=== PATIENT | male | born 1935 | race Caucasian/White ===

== ENCOUNTER 2020-12-11 18:00 | Inpatient (IN) | payer OTHER, MEDICARE ==
[~2020-12-11] VITALS: Ht 177.8 cm; Wt 82.3 kg
[2020-12-11 23:24] VITALS: BP 135/68
[2020-12-12] MEDS ORDERED: magnesium hydroxide 30ml (MOM) UD suspension PO PRN (00:10)
[2020-12-12] MEDS ORDERED: traZODone 50mg tablet PO PRN (00:10)
[2020-12-12] MEDS ORDERED: loperamide 2mg capsule PO PRN (00:10)
[2020-12-12] MEDS ORDERED: LORazepam 1 MG tablet PO PRN ×2 (00:10→13:00)
[2020-12-12] MEDS ORDERED: acetaminophen 325mg tablet PO PRN ×2 (00:10)
[2020-12-12] MEDS ORDERED: NAPR-996 PO (00:10)
--- NOTE | 2020-12-12 00:11 | NUR ---
SOFTWARE PROGRAM MANAGER NOTE: LEGAL HOLD: 5150 for DTS PSYCH HX: Depression. Recent SA via overdose. 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 Client told his daughter about this attempt and was taken to [facility]. Client states, "I'm old and I'm tired. I don't want to live to be 89. Three years ago I had a falling out with my son. I gave my daughter my house and my son is mad." "I'm lonely." Clients mood and affect are depressed. THIS SHIFT: Client arrived on unit at 22:30 in a wheelchair on 2 L of O2. Client was transferred from [facility]. Client was escorted by Benita. Client is a pleasant and cooperative. Personal belongings were inventoried. Unsteady gait. Client is a two person assist.
--- NOTE | 2020-12-12 03:20 | NUR ---
HIGH FALL RISK
[2020-12-12] MEDS ORDERED: ASPI-10 PO (03:32)
[2020-12-12] MEDS ORDERED: FLO0.4C PO (03:32)
[2020-12-12] MEDS ORDERED: LISI1TAB51 PO (03:32)
[2020-12-12] MEDS ORDERED: FAMO40TA59 PO (03:32)
[2020-12-12] MEDS ORDERED: SIMV80TA2 PO (03:32)
[2020-12-12] MEDS ORDERED: IBUP-1984 PO (03:32)
[2020-12-12] MEDS ORDERED: BISO5TAB PO (03:32)
[2020-12-12] MEDS ORDERED: naproxen 500mg tablet PO PRN (05:15)
[2020-12-12] MEDS: lisinopril 20mg tablet PO SCH (07:39)
[2020-12-12] MEDS: HYDROchlorothiazide 12.5mg capsule PO SCH (07:39)
[2020-12-12] MEDS: famotidine 20mg tablet PO SCH (07:39)
[2020-12-12] MEDS: tamsulosin 0.4mg capsule PO SCH (07:39)
[2020-12-12] MEDS: aspirin 325mg tablet PO SCH (07:40)
[2020-12-12] MEDS: atorvastatin 20mg tablet PO SCH (07:40)
[2020-12-12] MEDS ORDERED: atenolol 25mg tablet PO SCH (08:00)
[2020-12-12 08:09] VITALS: BP 109/58
[2020-12-12] MEDS: docusate sod 100mg capsule PO SCH ×2 (09:05→19:03)
[2020-12-12] MEDS ORDERED: FLU VACC QS2021-22(6MOS UP)/PF 60 MCG/0.5 ML SYRINGE IM ONE (10:00)
[2020-12-12] MEDS ORDERED: ESCITALOPRAM OXALATE 5 MG TABLET PO ONE (13:00)
--- NOTE | 2020-12-12 16:53 | NUR ---
Nursing Progress Note: Legal hold: 5150 Patient is on involuntary status for DTS. Report received from FINA Nuñez with use of SBAR. Assessment Why they are here: Client is a 85 yo man who attempted to overdose on his medications. Client told his daughter about this attempt and was taken to [facility]. Client states, "I'm old and I'm tired. I don't want to live to be 89. Three years ago I had a falling out with my son. I gave my daughter my house and my son is mad." "I'm lonely." What has happened this shift: Patient resting quietly in bed at the start of the shift. Sits up in bed against the wall for SOB when laying down. Sats remain >90% on 2L O2 via nasal cannula. SOB with activity relieved by rest. States he tried to commit suicide due to loneliness and depression. Had a falling out with his son, and lost a close friend 3 years ago. States he was not wanting to live until 88 or 89. States, I thought about it for a quite a while. So I wrote blank checks for my kids so theyd have money, and did it. Also states, Knowing what I know now I wouldnt do it again because it made me so disabled and weak. Ambulates with FWW with stand by assistance. Does not want to wear oxygen during the day. At home he wears O2 only at night. MD aware and O2 checked frequently. Atenolol held for HR < parameters. MD notified and states he will review Cardiac medications. Patient c/o frequent constipation. New order for routine Colace BID which patient is agreeable to. Patient is pleasant and cooperative although tearful at times when talking about family dynamics and loss of loved ones. PRN Milk of magnesia given; awaiting results. S/I, H/I: Denies A/VH: Denies Sleep: 3.75 hours per NOC. ADL's: Requires assistance r/t weakness and O2 desat with activity. Group attendance: N/A Were meds taken: Yes Any med S/E: None observed or reported Mental Status Exam Appearance: Older man with white hair, facial stubble, wearing clean unit scrubs. Eye contact: Good Behavior: Pleasant, cooperative Speech: Clear, normal rate/ volume Mood: Depressed Affect: Full range, Congruent with mood Thought process: Linear Thought Content: Feeling depressed over the relocation of a good friend 3 years ago, a falling out with his son 3 years ago, decreased independence and loneliness. Cognition: A&O x4 Insight: Fair Judgment: Fair Interventions PRN's used: None Therapeutic interventions: 1:1 assessment, therapeutic communication, active listening, ensured contract for safety, medication education/administration/monitoring, provided clear and simple instructions, encouragement to attend groups, behavior monitoring and intervention as needed; distraction, positive reinforcement, and maintained Q 15 minute safety checks. Restraints/seclusion/emergency medication: N/A Justification of Continued Inpatient Treatment: Patient continues to require a safe and therapeutic environment, medication adjustment/monitoring, and crisis intervention.
[2020-12-12 20:00] VITALS: BP 93/49
--- NOTE | 2020-12-12 23:00 | NUR ---
Fall Note: At approximately 20:30 staff responds to bed alarm. Patient is in the bathroom and reports that he fell on the floor on the way to the toilet. Skin tear noted to his left lateral forearm. Patient assisted back to bed. Initially denies pain from fall but later c/o generalized soreness relieved by PRN Motrin and rest. Skin tear cleaned and covered. Addendum: 12/13/20 at 0545 by Nika Clarke RN Post fall VS; BP 90/58, HR 51, O2 96% on 2L
[2020-12-13] MEDS: ibuprofen tablet 400 MG TABLET PO PRN (00:36)
--- NOTE | 2020-12-13 05:25 | NUR ---
Nursing Progress Note: Legal hold: 5150 Patient is on involuntary status for DTS. Report received from FINA Nice with use of SBAR. Assessment Why they are here: Client is a 85 yo man who attempted to overdose on his medications. Client told his daughter about this attempt and was taken to [facility]. Client states, "I'm old and I'm tired. I don't want to live to be 89. Three years ago I had a falling out with my son. I gave my daughter my house and my son is mad." "I'm lonely." What has happened this shift: Patient eating dinner in the community room at the start of the shift interacting appropriately with staff and peers. Returns to his room where he rests awake in bed with 2L O2 via nasal cannula. Sats remain >90% with SOB noted on exertion relieved by rest. Pleasant/ cooperative with care and 1:1 assessment. Takes medication as ordered. States he had a medium sized BM with some difficulty but is feeling less constipated. At patient tries to transfer from toilet independently and has a fall causing a skin tear to his right lateral forearm. Cleansed with NS and covered with non-adherent dressing. Patient c/o generalized pain during the night relieved by PRN Motrin. Sleeping quietly in bed at this time. S/I, H/I: Denies A/VH: Denies Sleep: See sleep assessment ADL's: Requires assistance r/t weakness and O2 desat with activity. Group attendance: N/A Were meds taken: Yes Any med S/E: None observed or reported Mental Status Exam Appearance: Older man with white hair, facial stubble, wearing clean unit scrubs. Eye contact: Good Behavior: Pleasant, cooperative, calm Speech: Clear, normal rate/ volume Mood: Pretty decent. Affect: Full range, Congruent with mood Thought process: Linear Thought Content: Concerned about generalized weakness and loss of independence. Cognition: A&O x4 Insight: Fair Judgment: Fair Interventions PRN's used: None Therapeutic interventions: 1:1 assessment, therapeutic communication, active listening, ensured contract for safety, medication education/administration/monitoring, provided clear and simple instructions, encouragement to attend groups, behavior monitoring and intervention as needed; distraction, positive reinforcement, and maintained Q 15 minute safety checks. Restraints/seclusion/emergency medication: N/A Justification of Continued Inpatient Treatment: Patient continues to require a safe and therapeutic environment, medication adjustment/monitoring, and crisis intervention.
[2020-12-13] MEDS: HYDROchlorothiazide 12.5mg capsule PO SCH (07:30)
[2020-12-13] MEDS: lisinopril 20mg tablet PO SCH (07:31)
[2020-12-13 07:39] VITALS: BP 99/59
[2020-12-13] MEDS: atorvastatin 20mg tablet PO SCH (07:41)
[2020-12-13] MEDS: aspirin 325mg tablet PO SCH (07:41)
[2020-12-13] MEDS: docusate sod 100mg capsule PO SCH ×2 (07:41→19:55)
[2020-12-13] MEDS: famotidine 20mg tablet PO SCH (07:41)
[2020-12-13] MEDS: tamsulosin 0.4mg capsule PO SCH (07:41)
[2020-12-13] MEDS: ESCITALOPRAM OXALATE 5 MG TABLET PO SCH (07:41)
[2020-12-13 10:08] LABS: HEMOGLOBIN A1C 6.1 % (4.5-6.2)
[2020-12-13 10:16] LABS: CHOL/HDL RATIO 2.8 (0.00-4.99); CHOLESTEROL 108 MG/DL (0-200); HDL CHOLESTEROL 38 MG/DL (35-60); LDL CHOLESTEROL 59 MG/DL (50-100); TRIGLYCERIDES 96 MG/DL (20-135)
--- NOTE | 2020-12-13 16:19 | NUR ---
Nursing Progress Note: Legal hold: 5150 Patient is on involuntary status for DTS. Report received from FINA Vargas with use of SBAR. Assessment Why they are here: Client is a 85 yo man who attempted to overdose on his medications. Client told his daughter about this attempt and was taken to [facility]. Client states, "I'm old and I'm tired. I don't want to live to be 89. Three years ago I had a falling out with my son. I gave my daughter my house and my son is mad." "I'm lonely." What has happened this shift: Pt sleeping at change of shift. Pt is line of site sitter for fall prevention. No staff available so pt placed on bed alarm and has call light and instructed to use the call light. Pt states he will follow these instructions due to his fall last night. Pt did follow all the fall precaution instructions today and did very well. Pt ambulated with assistance and walker. PT states feeling stronger today and ambulating improved from yesterday. Pts R elbow has dressing that was bloody. Carefully changed dressing with new nonadherant gauze and tegaderm. Pt is compliant with treatment and thankful. Pt states he will need help when he goes home and instructed pt to relay this info to bilingual social worker when he see one Monday. Pt started his antidepressant Lexapro today. S/I, H/I: Denies A/VH: Denies Sleep: See sleep assessment ADL's: Requires assistance r/t weakness and O2 desat with activity. Group attendance: N/A Were meds taken: Yes Any med S/E: None observed or reported Mental Status Exam Appearance: Older man with white hair, facial stubble, wearing clean unit scrubs. Eye contact: Good Behavior: Pleasant, cooperative, calm Speech: Clear, normal rate/ volume Mood: Pretty decent. Affect: Full range, Congruent with mood Thought process: Linear Thought Content: Concerned about generalized weakness and loss of independence. Cognition: A&O x4 Insight: Fair Judgment: Fair Interventions PRN's used: None Therapeutic interventions: 1:1 assessment, therapeutic communication, active listening, ensured contract for safety, medication education/administration/monitoring, provided clear and simple instructions, encouragement to attend groups, behavior monitoring and intervention as needed; distraction, positive reinforcement, and maintained Q 15 minute safety checks. Restraints/seclusion/emergency medication: N/A Justification of Continued Inpatient Treatment: Patient continues to require a safe and therapeutic environment, medication adjustment/monitoring, and crisis intervention.
[2020-12-13 19:35] VITALS: BP 134/74
--- NOTE | 2020-12-14 02:48 | NUR ---
Nursing Progress Note: Legal hold: 5150 Patient is on involuntary status for DTS. Report received from FINA Goodrich with use of SBAR. Assessment Why they are here: Client is a 85 yo man who attempted to overdose on his medications. Client told his daughter about this attempt and was taken to [facility]. Client states, "I'm old and I'm tired. I don't want to live to be 89. Three years ago I had a falling out with my son. I gave my daughter my house and my son is mad." "I'm lonely." What has happened this shift: Pt in bed at change of shift. Pts R elbow has dressing that was bloody. Carefully changed dressing with new non adherent gauze and Tegaderm. Pt is line of site for fall prevention. No staff available so pt placed on bed alarm and has call light and instructed to use the call light. Pt was cooperative and helpful. O2 via nasal canula on and needs to be removed from room in the AM. S/I, H/I: Denies A/VH: Denies Sleep: See sleep assessment ADL's: Requires assistance r/t weakness and O2 desat with activity. Group attendance: N/A Were meds taken: Yes Any med S/E: None observed or reported Mental Status Exam Appearance: Older man with white hair, facial stubble, wearing clean unit scrubs. Eye contact: Good Behavior: Pleasant, cooperative, calm Speech: Clear, normal rate/ volume Mood: Pretty decent. Affect: Full range, Congruent with mood Thought process: Linear Thought Content: Concerned about generalized weakness and loss of independence. Cognition: A&O x4 Insight: Fair Judgment: Fair Interventions PRN's used: None Therapeutic interventions: 1:1 assessment, therapeutic communication, active listening, ensured contract for safety, medication education/administration/monitoring, provided clear and simple instructions, encouragement to attend groups, behavior monitoring and intervention as needed; distraction, positive reinforcement, and maintained Q 15 minute safety checks. Restraints/seclusion/emergency medication: N/A Justification of Continued Inpatient Treatment: Patient continues to require a safe and therapeutic environment, medication adjustment/monitoring, and crisis intervention.
[2020-12-14] MEDS: ibuprofen tablet 400 MG TABLET PO PRN ×2 (04:00→16:46)
[2020-12-14 07:36] VITALS: BP 97/69
[2020-12-14] MEDS: aspirin 325mg tablet PO SCH (08:30)
[2020-12-14 08:50] VITALS: BP 120/60
[2020-12-14] MEDS: atorvastatin 20mg tablet PO SCH (08:58)
[2020-12-14] MEDS: docusate sod 100mg capsule PO SCH ×2 (08:58→20:22)
[2020-12-14] MEDS: tamsulosin 0.4mg capsule PO SCH (08:58)
[2020-12-14] MEDS: famotidine 20mg tablet PO SCH (08:58)
[2020-12-14] MEDS: ESCITALOPRAM OXALATE 5 MG TABLET PO SCH (08:58)
[2020-12-14] MEDS: lisinopril 10 MG tablet PO SCH (08:59)
[2020-12-14] MEDS: HYDROchlorothiazide 12.5mg capsule PO SCH (08:59)
[2020-12-14 10:02] LABS: CLARITY,URINE CLEAR (Clear); COLOR,URINE YELLOW (Yellow); GLUCOSE, URINE NEGATIVE (Neg); KETONES,URINE NEGATIVE (Neg); LEUKOCYTE ESTERASE ,URINE NEGATIVE (Neg); NITRITES, URINE NEGATIVE (Neg); OCCULT BLOOD,URINE SMALL (Neg); PROTEIN,URINE NEGATIVE (Neg); UA COLLECTION TYPE CLN CATCH MIDSTREAM; UROBILINOGEN,URINE 0.2 E.U/dL (0.2-1.0)
[2020-12-14 10:18] LABS: BACTERIA,URINE NONE SEEN /HPF (Neg); MUCUS STRANDS NONE SEEN /LPF (Neg); RBC,URINE NONE SEEN /HPF (0-2); SQUAMOUS EPITHELIAL CELL,UR FEW /LPF (FEW); WBC,URINE NONE SEEN /HPF (0-4)
--- NOTE | 2020-12-14 12:51 | NUR ---
[facility] requested [facility] to [facility] at [facility] request. Attn: Charlene Fax# [phone] Phone# [phone] SHANA Velazquez
[2020-12-14 17:00] VITALS: BP 132/63
--- NOTE | 2020-12-14 17:39 | NUR ---
Nursing Progress Note: Legal hold: 5250 Client on involuntary status for DTS Report received from nurse with use of SBAR: FINA Russo Why are they here: Client is a 85 yo man who attempted to overdose on his medications. Client told his daughter about this attempt and was taken to [facility]. Client states, "I'm old and I'm tired. I don't want to live to be 89. Three years ago I had a falling out with my son. I gave my daughter my house and my son is mad." "I'm lonely." Assessment What has happened this shift: Received pt. sleeping in bed at the beginning of the shift, he awoke and was able to ambulate to the independently with use of FWW monitored by staff for safety. Pt. remains on close observation per fall precautions, and bed alarm in use. However, pt. appears to be gaining strength, and is able to use FWW to independently ambulate throughout the day. 1:1 completed at bedside, pt. presents as cooperative and pleasant. He denies any current S/I, however states tearfully, "I just wish it would have worked when I tried to do myself in." He then reports that he lives alone and is lonely. He is hoping to be placed in a facility where he can interact with others. This junior copywriter replaced dressing to pt's right elbow r/t laceration from previous fall bleeding through. This was endorsed to Dr. Qureshi who ordered a wound care consult. Also, daily Asprin 325mg held. Dr. Qureshi also ordered a urinalysis r/t chronic small amount of blood in urine, results were WNL and no culture indicated. Pt. remained in bed throughout much of the day, getting up for meals only. He had several telephone calls from friends and family and reported contentment. This junior copywriter spoke to pt's daughter with his consent. S/I, H/I: Passive S/I A/VH: Denies, does not appear internally preoccupied Sleep: Sleep hours are 5.5, and pt. naps intermittently during the day ADL's: On close observation r/t fall risk, uses FWW Group attendance: N/A Were meds taken: Yes Any med S/E None Mental Status Exam Appearance: Neat and appropriately dressed Eye contact: Good Behavior: Cooperative Speech: WNL Mood: Depressed, however pleasant Affect: Blunted Thought process: Linear Thought Content: Depressed Cognition: A&O X4 Insight: Poor Judgment: Poor Interventions PRN's used: Yg Therapeutic interventions: Introduced self and established rapport, maintained a safe and supportive environment, ensured contract for safety, provided clear and simple instructions, provided active listening and positive encouragement, maintained fall precautions and close observation. Restraints/seclusion/emergency medication: N/A Justification of Continued Inpatient Treatment: Pt. continues to require interruption of current crisis, medication adjustments, and a safe and supportive environment.
--- NOTE | 2020-12-14 17:58 | NUR ---
Right arm Laceration: At approximately 1700, pt. reported increased pain at rt. elbow laceration site from previous fall. Area appears reddened and is warm to the touch. V/S WNL. Hospitalist notified and PRN Motrin given. Per Dr. Carlson, CBC with diff, BMP, and procalcitonin labs ordered. Also, an x-ray of the area. Depending on these results, the decision to start pt. on ABTs will be made, will endorse to NOC shift. Provided eduction to pt. and he reports understanding. Dressing to area remains CDI.
[2020-12-14 18:59] LABS: BASOPHILS # (AUTO) 0.2 X10'3 (0-0.2); EOSINOPHILS % (AUTO) 0.2 % (0-6); HEMATOCRIT 47.2 % (42.0-52.0); HEMOGLOBIN 16.1 g/dl (14.0-17.9); LYMPHOCYTES # (AUTO) 1.6 X10'3 (1.1-4.8); LYMPHOCYTES % (AUTO) 10.2 % (21-51); MEAN CORPUSCULAR HEMOGLOBIN 30.8 PG (27.0-31.0); MEAN CORPUSCULAR HGB CONC 34.1 g/dL (33.0-36.5); MEAN CORPUSCULAR VOLUME 90.4 FL (78-98); MEAN PLATELET VOLUME 9.1 FL (7.4-10.4); MONOCYTES # (AUTO) 1.2 X10'3 (0-0.9); MONOCYTES % (AUTO) 8.1 % (2-12); NEUTROPHILS # (AUTO) 12.4 X10'3 (1.8-7.7); NEUTROPHILS % (AUTO) 80.5 % (42-75); PLATELET COUNT 208 X10'3 (140-440); RED BLOOD COUNT 5.22 X10'6 (4.70-6.10); WHITE BLOOD COUNT 15.4 X10'3 (4.5-11.0)
[2020-12-14 19:09] LABS: ALBUMIN 3.4 G/DL (3.4-5.0); ANION GAP 12 (8-16); BLOOD UREA NITROGEN 28 MG/DL (7-18); CALCIUM 8.8 MG/DL (8.5-10.1); CHLORIDE 104 MMOL/L (99-107); CREATININE 1.27 MG/DL (0.60-1.10); GLUCOSE 111 MG/DL (70-104); POTASSIUM 4.4 MMOL/L (3.5-5.1); SODIUM 141 MMOL/L (135-145); TOTAL CARBON DIOXIDE 25.5 MMOL/L (24-32); eGFR 54 ML/MIN
[2020-12-14 20:17] VITALS: BP 96/54
[2020-12-15] MEDS: ibuprofen tablet 400 MG TABLET PO PRN (00:09)
--- NOTE | 2020-12-15 00:23 | NUR ---
Nursing Progress Note: Legal hold: 5250 Client on involuntary status for DTS Report received from nurse with use of SBAR:FINA Nice Why are they here: Client is a 85 yo man who attempted to overdose on his medications. Client told his daughter about this attempt and was taken to [facility]. Client states, "I'm old and I'm tired. I don't want to live to be 89. Three years ago I had a falling out with my son. I gave my daughter my house and my son is mad." "I'm lonely." Assessment What has happened this shift: Received pt. sleeping in bed at the beginning of the shift, he awoke and ambulated to the BR independently with use of FWW with standby of staff for safety. Pt. remains on close observation per fall precautions, and bed alarm in use. Pt. presents as cooperative and pleasant. He denies any current S/I, Pt. remained in bed throughout the shift, getting up for use of bathroom. Prn Motrin for c/o pain effective. S/I, H/I: Passive S/I A/VH: Denies, does not appear internally preoccupied Sleep: See sleep assessment. ADL's: On close observation r/t fall risk, uses FWW Group attendance: N/A Were meds taken: Yes Any med S/E None Mental Status Exam Appearance: Neat and appropriately dressed Eye contact: Good Behavior: Cooperative Speech: WNL Mood: Depressed, however pleasant Affect: Blunted Thought process: Linear Thought Content: Depressed Cognition: A&O X4 Insight: Poor Judgment: Poor Interventions PRN's used: Motrin Therapeutic interventions: Introduced self and established rapport, maintained a safe and supportive environment, ensured contract for safety, provided clear and simple instructions, provided active listening and positive encouragement, maintained fall precautions and close observation. Restraints/seclusion/emergency medication: N/A Justification of Continued Inpatient Treatment: Pt. continues to require interruption of current crisis, medication adjustments, and a safe and supportive environment.
[2020-12-15] MEDS ORDERED: ibuprofen 200mg tablet PO PRN (07:30)
[2020-12-15] MEDS: aspirin 325mg tablet PO SCH (08:30)
[2020-12-15 08:37] VITALS: BP 113/62
[2020-12-15] MEDS: ESCITALOPRAM OXALATE 5 MG TABLET PO SCH (08:50)
[2020-12-15] MEDS: HYDROchlorothiazide 12.5mg capsule PO SCH (08:50)
[2020-12-15] MEDS: famotidine 20mg tablet PO SCH (08:51)
[2020-12-15] MEDS: docusate sod 100mg capsule PO SCH ×2 (08:51→20:30)
[2020-12-15] MEDS: atorvastatin 20mg tablet PO SCH (08:51)
[2020-12-15] MEDS: lisinopril 10 MG tablet PO SCH (08:51)
[2020-12-15] MEDS: tamsulosin 0.4mg capsule PO SCH (08:51)
--- NOTE | 2020-12-15 09:00 | NUR ---
Wound care orders: Pt's laceration on right elbow from fall on 12/12 continues to be painful, reddened, and warm to the touch with purulent drainage. V/S remain WNL, however pt. has an elevated WBC count. Dr. Cornejo came to evaluate wound and wound culture ordered, he will be ordering PO ABTS. This internal communications writer also spoke to would care team about the wound and obtained orders (see interventions). Area was cleaned, culture obtained, and ordered treatment and dressing completed to area, pt. tolerated well. Also, measurements of area and a picture was obtained and is in pt's chart. Per wound care team, they will be over to evaluate the wound tomorrow. Pt. was administered Motrin and Naprosyn for pain with effectiveness. Will continue to monitor.
--- NOTE | 2020-12-15 09:25 | NUR ---
Initial: Pt admitted w/ increasing depression and suicide attempt per EMR. Pt currently on Regular diet eating mostly 100% of meals meeting needs. [facility] 12/14 receiving routine colace. No nutrition intervention implemented at this time, will continue to monitor. Recs: 1. Continue Regular diet as tolerated 2. Bowel care per rx 3. Weekly wts Addendum: 12/15/20 at [address] Amended: Links added.
--- NOTE | 2020-12-15 13:13 | NUR ---
Nursing Progress Note: Legal hold: 5250 Client on involuntary status for DTS Report received from nurse with use of SBAR: FINA Porter Why are they here: Client is a 85 yo man who attempted to overdose on his medications. Client told his daughter about this attempt and was taken to [facility]. Client states, "I'm old and I'm tired. I don't want to live to be 89. Three years ago I had a falling out with my son. I gave my daughter my house and my son is mad." "I'm lonely." Assessment What has happened this shift: Received pt. sleeping in bed at the beginning of the shift, he awoke and continues to be able to ambulate with use of FWW monitored by staff for safety. Pt. remains on close observation r/t fall precautions, and bed alarm in use. 1:1 was completed later at bedside, pt. continues to deny any S/I, and states jokingly, "I don't think I'll do that again. I didn't do a good enough job the last time." He appears to be minimizing any MH s/s. When this press writer questioned pt. regarding loneliness and his current living situation, he reports that his son-in-law may move in with him because he must stay in his current apartment for two more months. Pt. is hopeful that [place] housing can eventually be found for him. Pt.again remained in bed throughout much of the day, getting up for meals only. He again, received several telephone calls from family. S/I, H/I: Denies A/VH: Denies, does not appear internally preoccupied Sleep: Sleep hours are 7.5, and pt. naps intermittently during the day ADL's: On close observation r/t fall risk, uses FWW. Bed alarm in use Group attendance: No Were meds taken: Yes Any med S/E None Mental Status Exam Appearance: Neat and appropriately dressed Eye contact: Good Behavior: Cooperative and fatigued Speech: WNL Mood: Depressed, however pleasant Affect: Blunted Thought process: Linear Thought Content: Depressed Cognition: A&O X4 Insight: Poor Judgment: Poor Interventions PRN's used: Motrin and Naprosyn Therapeutic interventions: Maintained a safe and supportive environment, ensured contract for safety, provided clear and simple instructions, provided active listening and positive encouragement, monitored laceration on rt. elbow and obtained a culture and wound care orders, wound care completed, and maintained fall precautions and close observation. Restraints/seclusion/emergency medication: N/A Justification of Continued Inpatient Treatment: Per Dr. Qureshi, pt. continues to require medication adjustments and a safe and supportive environment.
--- NOTE | 2020-12-15 13:50 | NUR ---
CM Presenting Issues: Pt lives alone, this contributes to high risk associated w/SI. Interventions: Clinician had t/c w/pt's dtr and engaged her in pre-dcp activities to discuss concerns the attending physician & care team have associated w/pt's current living situation. Per discussion, dtr's ex- will be moving in w/pt when he d/c from the hospital, clinician will contact [place] outpatient services to provide referral for some form of home health services. Plan: Clinician will engage pt in assessing his post hospital needs to prepare for d/c. Cassidy Vasquez LCSW Addendum: 12/15/20 at 1405 by Cassidy Vasquez SS Amended: Links added.
[2020-12-15] MEDS: cephalexin 500mg capsule PO SCH ×2 (14:32→20:30)
[2020-12-15 20:40] VITALS: BP 97/60
[2020-12-15] MEDS: mag hydrox/Alum hydrox/simeth 30ml oral suspension PO PRN (22:35)
--- NOTE | 2020-12-16 01:23 | NUR ---
Nursing Progress Note: Legal hold: 5250 Client on involuntary status for DTS Report received from nurse with use of SBAR: Tex RN Why are they here: Client is a 85 yo man who attempted to overdose on his medications. Client told his daughter about this attempt and was taken to [facility]. Client states, "I'm old and I'm tired. I don't want to live to be 89. Three years ago I had a falling out with my son. I gave my daughter my house and my son is mad." "I'm lonely." Assessment What has happened this shift: Pt sleeping in bed at the beginning of the shift, Pt. remains on observation r/t fall precautions, and bed alarm in use. Pt is using call light for assistance. He stayed in his room and was med compliant. S/I, H/I: Denies A/VH: Denies, does not appear internally preoccupied Sleep: See sleep assessment. ADL's: On close observation r/t fall risk, uses FWW. Bed alarm in use Group attendance: No Were meds taken: Yes Any med S/E None Mental Status Exam Appearance: Neat and appropriately dressed Eye contact: Good Behavior: Cooperative and fatigued Speech: WNL Mood: Depressed, however pleasant Affect: Blunted Thought process: Linear Thought Content: Depressed Cognition: A&O X4 Insight: Poor Judgment: Poor Interventions PRN's used: Motrin and Naprosyn Therapeutic interventions: Maintained a safe and supportive environment, ensured contract for safety, provided clear and simple instructions, provided active listening and positive encouragement, monitored laceration on rt. elbow and obtained a culture and wound care orders, wound care completed, and maintained fall precautions and close observation. Restraints/seclusion/emergency medication: N/A Justification of Continued Inpatient Treatment: Per Dr. Qureshi, pt. continues to require medication adjustments and a safe and supportive environment.
[2020-12-16] MEDS: cephalexin 500mg capsule PO SCH ×4 (02:44→20:10)
[2020-12-16] MEDS: HYDROchlorothiazide 12.5mg capsule PO SCH (08:00)
[2020-12-16] MEDS: lisinopril 10 MG tablet PO SCH (08:00)
[2020-12-16] MEDS: docusate sod 100mg capsule PO SCH ×2 (08:36→20:10)
[2020-12-16] MEDS: aspirin 325mg tablet PO SCH (08:37)
[2020-12-16] MEDS: famotidine 20mg tablet PO SCH (08:37)
[2020-12-16] MEDS: tamsulosin 0.4mg capsule PO SCH (08:37)
[2020-12-16] MEDS: ESCITALOPRAM OXALATE 5 MG TABLET PO SCH (08:37)
[2020-12-16] MEDS: atorvastatin 20mg tablet PO SCH (08:37)
[2020-12-16 08:58] VITALS: BP 94/49
--- NOTE | 2020-12-16 16:52 | NUR ---
Nursing Progress Note: Legal hold: 5250 Client on involuntary status for DTS Report received from nurse with use of SBAR: Charlotte RN Why are they here: Client is a 85 yo man who attempted to overdose on his medications. Client told his daughter about this attempt and was taken to [facility]. Client states, "I'm old and I'm tired. I don't want to live to be 89. Three years ago I had a falling out with my son. I gave my daughter my house and my son is mad." "I'm lonely." Assessment What has happened this shift: Pt. received sleeping in his room. He awoke to receive his medication Microzide, Zestril held r/t BP parameters. Pt. did go to dining room for breakfast using FWW monitored by staff for safety, no s/sx of hypotension. Pt. remains on close observation r/t fall precautions, and bed alarm in use while in his room. Assessment 1:1 completed pt. open about recent SI but reports no real plan. He currently denies SI, HI, but presents as depressed AEB statements my current living situation makes me feel lonely. Pt. reports his future plans my son in law and grand child may come live with me. Pt. has kerlex to RUE and PO ABX Keflex continues with no ASEs found, and wound cultures pending, N.O GI protectant requested per protocol. Pt. attended all meals in dining room and was observed interacting socially with cohorts. Pts daughter was on unit visiting this shift. He had a few naps this shift and attended group briefly. S/I, H/I: Denies A/VH: Denies Sleep: Per NOC shift 7.25, and several naps this shift ADL's: Pt. remains on close observation r/t fall risk, uses FWW and bed alarm Group attendance: No Were meds taken: Yes Any med S/E None Mental Status Exam Appearance: Older man bandage to RUE, wearing green scrubs Eye contact: Good Behavior: Cooperative and fatigued Speech: Normal Mood: Depressed Affect: Congruent with mood. Thought process: Linear Thought Content: Depressed Cognition: A&O X4 Insight: Poor Judgment: Poor Interventions PRN's used: None Therapeutic interventions: Maintained a safe and supportive environment, ensured contract for safety, provided clear and simple instructions, provided active listening and positive encouragement, monitored laceration on rt. elbow and obtained a culture and wound care orders, wound care completed, and maintained fall precautions and close observation. Restraints/seclusion/emergency medication: N/A Justification of Continued Inpatient Treatment: Per Dr. Qureshi, pt. continues to require medication adjustments and a safe and supportive environment.
--- NOTE | 2020-12-16 19:17 | NUR ---
WOUND INFECTION EDUCATION PROVIDED BY WOUND CARE 1. Patient instructed to call their primary doctor, or go the ED immediately if any of the following symptoms occur: * Increased pain in wound * Increase in drainage from the wound * Redness in the skin surrounding the wound * Warmth in the skin surrounding the wound * Bleeding from the wound * Temperature of 101 or greater 2. If any of these occur while in the hospital tell a nurse immediately. [] Addendum: 12/16/20 at 1919 by Kendal Brooks RN Amended: Links added.
[2020-12-16 19:30] VITALS: BP 127/76
[2020-12-16] MEDS: mag hydrox/Alum hydrox/simeth 30ml oral suspension PO PRN (20:10)
[2020-12-16] MEDS: lactobacillus rhamnosus 10,000 MMU CELLS/CAPSULE PO SCH (20:11)
[2020-12-17] MEDS: cephalexin 500mg capsule PO SCH ×3 (01:30→14:09)
--- NOTE | 2020-12-17 01:53 | NUR ---
Nursing Progress Note: Legal hold: 5250 Client on involuntary status for DTS Report received from nurse with use of SBAR: FINA Nice Why are they here: Client is a 85 yo man who attempted to overdose on his medications. Client told his daughter about this attempt and was taken to [facility]. Client states, "I'm old and I'm tired. I don't want to live to be 89. Three years ago I had a falling out with my son. I gave my daughter my house and my son is mad." "I'm lonely." Assessment What has happened this shift: Patient getting into bed at the beginning of shift. Pleasant and cooperative with care; compliant with medication. PRN Maalox provided per request. R FA remains wrapped and patient on ABx for infection with no ASE observed. Patient denies SI, HI, A/VH; does not appear to be responding to IS and no delusional thought content expressed. Patient reports low energy this shift and did not participate in HS snack. Patient observed sleeping; broken pattern observed d/t frequent urination. S/I, H/I: Denies A/VH: Denies Sleep: Refer to sleep assessment ADL's: Remains on close observation r/t fall risk, uses FWW and bed alarm Group attendance: NA Were meds taken: Yes Any med S/E: None observed or reported Mental Status Exam Appearance: Neat, appropriately dressed in green unit scrubs Eye contact: Good Behavior: Pleasant and cooperative, fatigued, restless Speech: Clear, audible, regular rate/rhythm Mood: Depressed Affect: Congruent with mood Thought process: Linear Thought Content: Meeting needs, low energy Cognition: A&O X4 Insight: Poor Judgment: Poor Interventions PRN's used: None Therapeutic interventions: Maintained a safe and supportive environment, ensured contract for safety, provided clear and simple instructions, provided active listening and positive encouragement, monitored laceration on rt. elbow and obtained a culture and wound care orders, wound care completed, and maintained fall precautions and close observation. Restraints/seclusion/emergency medication: NA Justification of Continued Inpatient Treatment: Per Dr. Qureshi, pt. continues to require medication adjustments and a safe and supportive environment.
[2020-12-17] MEDS: tamsulosin 0.4mg capsule PO SCH (07:41)
[2020-12-17] MEDS: lactobacillus rhamnosus 10,000 MMU CELLS/CAPSULE PO SCH ×2 (07:42→20:16)
[2020-12-17] MEDS: docusate sod 100mg capsule PO SCH ×2 (07:42→20:16)
[2020-12-17] MEDS: lisinopril 10 MG tablet PO SCH (07:42)
[2020-12-17] MEDS: atorvastatin 20mg tablet PO SCH (07:42)
[2020-12-17] MEDS: ESCITALOPRAM OXALATE 5 MG TABLET PO SCH (07:43)
[2020-12-17] MEDS: famotidine 20mg tablet PO SCH (07:43)
[2020-12-17] MEDS: HYDROchlorothiazide 12.5mg capsule PO SCH (07:43)
[2020-12-17] MEDS: aspirin 325mg tablet PO SCH (07:43)
[2020-12-17 07:54] VITALS: BP 120/78
--- NOTE | 2020-12-17 13:07 | NUR ---
Faxed last [facility] days of [facility] to [facility] at [facility] request (fax# [phone]). psychotherapist social worker, Charlene (ph# [phone]), requested [facility] social research assistant to call Zay Gandhi with the [place] office to coordinate follow up upon discharge. SHANA Velazquez
--- NOTE | 2020-12-17 16:38 | NUR ---
Nursing Progress Note: Legal hold: 5250 Client on involuntary status for DTS Report received from nurse with use of SBAR: Charlotte RN Why are they here: Client is a 85 yo man who attempted to overdose on his medications. Client told his daughter about this attempt and was taken to [facility]. Client states, "I'm old and I'm tired. I don't want to live to be 89. Three years ago I had a falling out with my son. I gave my daughter my house and my son is mad." "I'm lonely." Assessment What has happened this shift: Pt. received sleeping in his room. Pt. did go to dining room for breakfast using FWW monitored by staff for safety. Pt. remains on close observation r/t fall precautions, and bed alarm in use while in his room. Electric Frying Pan Repairer offered active listening and positive encouragement during 1:1 assessment. Pt. reported planning on killing my self is what brought me here. He currently denies SI, HI, but presents as depressed AEB statements Im 85 y/o and Lenore lived a long life I have nothing left on my bucket list. Pt. reports his future plans my family may come live with me. Pt. was provided with wound care to RUE d/t a saturated bandage. PO ABX Keflex continues with no ASEs found. Pt. ate all meals in dining room and socially interacted with cohorts. Pt did not attended group this shift, but was encouraged to do so. He engaged socially with fha underwriter and was open to discussing a variety of topics. Pt. found to have increased cellulitis to RUE and warm to the touch with 2/10 pain along with BRAKE SHOE REBUILDER results; Hospitalist paged. Pt. refused needing PRN for discomfort. He was observed napping in-between meals. S/I, H/I: Denies A/VH: Denies Sleep: Per NOC shift 8.5 hrs, and several naps this shift ADL's: Independent, Pt. remains on close observation r/t fall risk, uses FWW and bed alarm Group attendance: No Were meds taken: Yes Any med S/E None Mental Status Exam Appearance: Older man with bandage to RUE, wearing green scrubs Eye contact: Good Behavior: Cooperative and fatigued Speech: Normal Mood: Depressed Affect: Congruent with mood. Thought process: Linear Thought Content: Depressed Cognition: A&O X4 Insight: Poor Judgment: Poor Interventions PRN's used: None Therapeutic interventions: Maintained a safe and supportive environment, ensured contract for safety, provided clear and simple instructions, provided active listening and positive encouragement, monitored laceration on rt. elbow and obtained a culture and wound care orders, wound care completed, and maintained fall precautions and close observation. Restraints/seclusion/emergency medication: N/A Justification of Continued Inpatient Treatment: Per Dr. Qureshi, pt. continues to require medication adjustments and a safe and supportive environment. Addendum: 12/17/20 at 1657 by Michelle Rangel RN N.O for Amoxocillin 500mg PO Q8hr and Keflex DC'd per Hospitalist. Pt. notified of med changes and he reported X1 episode of hematuria which he has Hx of previously spoke to provider about.
[2020-12-17 19:36] LABS: BASOPHILS % (AUTO) 0.2 % (0-1); EOSINOPHILS # (AUTO) 0.2 X10'3 (0-0.9); HEMATOCRIT 43.4 % (42.0-52.0); HEMOGLOBIN 14.8 g/dl (14.0-17.9); LYMPHOCYTES # (AUTO) 1.2 X10'3 (1.1-4.8); LYMPHOCYTES % (AUTO) 6.5 % (21-51); MEAN CORPUSCULAR HEMOGLOBIN 30.9 PG (27.0-31.0); MEAN CORPUSCULAR HGB CONC 34.1 g/dL (33.0-36.5); MEAN CORPUSCULAR VOLUME 90.6 FL (78-98); MONOCYTES # (AUTO) 0.8 X10'3 (0-0.9); MONOCYTES % (AUTO) 4.5 % (2-12); NEUTROPHILS # (AUTO) 15.7 X10'3 (1.8-7.7); NEUTROPHILS % (AUTO) 87.8 % (42-75); PLATELET COUNT 222 X10'3 (140-440); RED BLOOD COUNT 4.79 X10'6 (4.70-6.10); RED CELL DISTRIBUTION WIDTH 14.2 % (11.5-14.5); WHITE BLOOD COUNT 17.8 X10'3 (4.5-11.0)
[2020-12-17 19:40] VITALS: BP 119/63
[2020-12-17 19:51] LABS: ALANINE AMINOTRANSFERASE 64 U/L (12-78); ALBUMIN 2.5 G/DL (3.4-5.0); ALBUMIN/GLOBULIN RATIO 0.6 (1.1-1.5); ALKALINE PHOSPHATASE 83 IU/L (46-116); ANION GAP 9 (8-16); ASPARTATE AMINO TRANSFERASE 62 U/L (10-37); BILIRUBIN,TOTAL 0.4 MG/DL (0.1-1.0); BLOOD UREA NITROGEN 37 MG/DL (7-18); BUN/CREATININE RATIO 22.3 (5.4-32.0); CALCIUM 8.6 MG/DL (8.5-10.1); CHLORIDE 103 MMOL/L (99-107); CREATININE 1.66 MG/DL (0.60-1.10); GLUCOSE 131 MG/DL (70-104); POTASSIUM 3.9 MMOL/L (3.5-5.1); SODIUM 141 MMOL/L (135-145); TOTAL CARBON DIOXIDE 29.2 MMOL/L (24-32); TOTAL PROTEIN 6.8 G/DL (6.4-8.2); eGFR 39 ML/MIN
[2020-12-17] MEDS: mag hydrox/Alum hydrox/simeth 30ml oral suspension PO PRN (20:16)
[2020-12-18] MEDS: amoxicillin 250mg capsule PO SCH ×2 (00:31→07:55)
--- NOTE | 2020-12-18 02:56 | NUR ---
Nursing Progress Note: Legal hold: 5250 Client on involuntary status for DTS Report received from nurse with use of SBAR: STERLING Martinez Why are they here: Client is a 85 yo man who attempted to overdose on his medications. Client told his daughter about this attempt and was taken to [facility]. Client states, "I'm old and I'm tired. I don't want to live to be 89. Three years ago I had a falling out with my son. I gave my daughter my house and my son is mad." "I'm lonely." Assessment What has happened this shift: Patient in bed at the beginning of shift. Pleasant and cooperative with care; compliant with medication. PRN Maalox provided per request. WBC 17.3, started Amoxicillin with no ASE observed or reported. Cellulitis in R arm; wound DSG CDI. Patient cooperative with use of call light when he needs to get out of bed; observed sleeping and does not appear to be having difficulty. S/I, H/I: Denies A/VH: Denies Sleep: Refer to sleep assessment ADL's: Remains on close observation r/t fall risk, uses FWW and bed alarm Group attendance: NA Were meds taken: Yes Any med S/E: None observed or reported Mental Status Exam Appearance: Neat, appropriately dressed in green unit scrubs Eye contact: Good Behavior: Pleasant and cooperative, fatigued, restless Speech: Clear, audible, regular rate/rhythm Mood: Depressed Affect: Congruent with mood Thought process: Linear Thought Content: Meeting needs, low energy Cognition: A&O X4 Insight: Poor Judgment: Poor Interventions PRN's used: Maalox Therapeutic interventions: Maintained a safe and supportive environment, ensured contract for safety, provided clear and simple instructions, provided active listening and positive encouragement, monitored laceration on rt. elbow and obtained a culture and wound care orders, wound care completed, and maintained fall precautions and close observation. Restraints/seclusion/emergency medication: NA Justification of Continued Inpatient Treatment: Per Dr. Qureshi, pt. continues to require medication adjustments and a safe and supportive environment.
[2020-12-18] MEDS: ESCITALOPRAM OXALATE 5 MG TABLET PO SCH (07:52)
[2020-12-18] MEDS: tamsulosin 0.4mg capsule PO SCH (07:53)
[2020-12-18] MEDS: famotidine 20mg tablet PO SCH (07:53)
[2020-12-18] MEDS: lactobacillus rhamnosus 10,000 MMU CELLS/CAPSULE PO SCH ×2 (07:53→20:39)
[2020-12-18] MEDS: docusate sod 100mg capsule PO SCH ×2 (07:53→20:39)
[2020-12-18 07:55] VITALS: BP 114/67
[2020-12-18] MEDS: HYDROchlorothiazide 12.5mg capsule PO SCH (07:55)
[2020-12-18] MEDS: atorvastatin 20mg tablet PO SCH (07:55)
[2020-12-18] MEDS: lisinopril 10 MG tablet PO SCH (07:56)
[2020-12-18] MEDS: aspirin 325mg tablet PO SCH (08:08)
[2020-12-18] MEDS ORDERED: levoFLOXACIN 750MG TABLET PO SCH (14:08)
--- NOTE | 2020-12-18 17:22 | NUR ---
Nursing Progress Note: Legal hold: 5250 Client on involuntary status for DTS Report received from nurse with use of SBAR: Nuñez RN Why are they here: Client is a 85 yo man who attempted to overdose on his medications. Client told his daughter about this attempt and was taken to [facility]. Client states, "I'm old and I'm tired. I don't want to live to be 89. Three years ago I had a falling out with my son. I gave my daughter my house and my son is mad." "I'm lonely." Assessment What has happened this shift: Pt. received sleeping in his room. Examined RUE a decrease in cellulites is noticed along with color presenting as light pink. New ABX Amoxicillin was started 12/17/20 with no ASEs found. Pt was given his morning meds and active listening and positive encouragement during 1:1 assessment was provided. Pt. denies SI,HI, but acknowledged recent SI I was planning on killing myself, because I was so lonely pt. is insightful and is interested in attending group while admitted and wants to move to [place] home or have family live with me when I leave here. Pt. reports his daughter is engaged in helping him. He presents with feelings of depression when discussing his recent loss of friends and a neighbor. Pt. ate his meals in dining room and engaged socially with cohorts. No reports of hematuria this shift. Foam Gun Operator woke pt. for group and found RUE was bright red and more edematous, and he c/o heaviness VSS afebrile. Foam Gun Operator provided LOS as he wanted to attend group, and spoke to a provider re SHELLY. N.O for Levaquin PO received; started this shift and Amoxicillin was DCd. He continues to use call light for transfers and remains in LOS r/t safety. Pt. ambulating well with 4WW. S/I, H/I: Denies A/VH: Denies Sleep: Per NOC shift 9 hrs, and several naps this shift ADL's: Pt. remains on close observation r/t fall risk, uses FWW and bed alarm Group attendance: Yes Were meds taken: Yes Any med S/E None Mental Status Exam Appearance: Older man with RUE bandage, wearing green scrubs Eye contact: Good Behavior: Cooperative and fatigued Speech: Normal Mood: Depressed Affect: Congruent with mood. Thought process: Linear Thought Content: Depressed Cognition: A&O X4 Insight: Poor Judgment: Poor Interventions PRN's used: None Therapeutic interventions: Maintained a safe and supportive environment, ensured contract for safety, provided clear and simple instructions, provided active listening and positive encouragement, monitored laceration on rt. elbow and obtained a culture and wound care orders, wound care completed, and maintained fall precautions and close observation. Restraints/seclusion/emergency medication: N/A Justification of Continued Inpatient Treatment: Per Dr. Qureshi, pt. continues to require medication adjustments and a safe and supportive environment.
[2020-12-18 19:00] VITALS: BP 101/62
[2020-12-18] MEDS: mag hydrox/Alum hydrox/simeth 30ml oral suspension PO PRN (20:39)
--- NOTE | 2020-12-19 02:18 | NUR ---
Nursing Progress Note: Legal hold: 5250 Client on involuntary status for DTS Report received from nurse with use of SBAR: Darcy RN Why are they here: Client is a 85 yo man who attempted to overdose on his medications. Client told his daughter about this attempt and was taken to [facility]. Client states, "I'm old and I'm tired. I don't want to live to be 89. Three years ago I had a falling out with my son. I gave my daughter my house and my son is mad." "I'm lonely." Assessment What has happened this shift: Patient laying in bed awake at the beginning of shift. Pleasant and cooperative with care; compliant with medication. PRN Maalox provided per patient request. Wound DSG to R FA CDI; arm remains red with swelling. Patient denies SI, HI, A/VH; no delusional thought content expressed. Patient remains in his room at this time; observed sleeping and does not appear to be having difficulty. S/I, H/I: Denies A/VH: Denies Sleep: Refer to sleep assessment ADL's: Remains on close observation r/t fall risk, uses FWW and bed alarm Group attendance: NA Were meds taken: Yes Any med S/E: None observed or reported Mental Status Exam Appearance: Neat, appropriately dressed in green unit scrubs Eye contact: Good Behavior: Pleasant and cooperative, fatigued, restless Speech: Clear, audible, regular rate/rhythm Mood: Brightening Affect: Congruent with mood Thought process: Linear Thought Content: Meeting needs Cognition: A&O X4 Insight: Poor Judgment: Poor Interventions PRN's used: Maalox Therapeutic interventions: Maintained a safe and supportive environment, ensured contract for safety, provided clear and simple instructions, provided active listening and positive encouragement, monitored laceration on rt. elbow and obtained a culture and wound care orders, wound care completed, and maintained fall precautions and close observation. Restraints/seclusion/emergency medication: NA Justification of Continued Inpatient Treatment: Per Dr. Qureshi, pt. continues to require medication adjustments and a safe and supportive environment.
[2020-12-19 07:30] VITALS: BP 132/75
[2020-12-19] MEDS: ESCITALOPRAM OXALATE 5 MG TABLET PO SCH (08:42)
[2020-12-19] MEDS: atorvastatin 20mg tablet PO SCH (08:42)
[2020-12-19] MEDS: docusate sod 100mg capsule PO SCH ×2 (08:42→20:24)
[2020-12-19] MEDS: lactobacillus rhamnosus 10,000 MMU CELLS/CAPSULE PO SCH ×2 (08:42→20:24)
[2020-12-19] MEDS: famotidine 20mg tablet PO SCH (08:43)
[2020-12-19] MEDS: aspirin 325mg tablet PO SCH (08:43)
[2020-12-19] MEDS: tamsulosin 0.4mg capsule PO SCH (08:43)
[2020-12-19] MEDS: lisinopril 10 MG tablet PO SCH (08:43)
[2020-12-19 09:43] LABS: HEMOGLOBIN 14.9 g/dl (14.0-17.9)
[2020-12-19 09:45] LABS: HEMATOCRIT 43.5 % (42.0-52.0); MEAN CORPUSCULAR HEMOGLOBIN 30.4 PG (27.0-31.0); MEAN CORPUSCULAR HGB CONC 34.3 g/dL (33.0-36.5); MEAN CORPUSCULAR VOLUME 88.8 FL (78-98); MEAN PLATELET VOLUME 8.7 FL (7.4-10.4); PLATELET COUNT 245 X10'3 (140-440); RED BLOOD COUNT 4.89 X10'6 (4.70-6.10); RED CELL DISTRIBUTION WIDTH 14.1 % (11.5-14.5)
[2020-12-19 09:59] LABS: ALANINE AMINOTRANSFERASE 70 U/L (12-78); ALBUMIN 2.4 G/DL (3.4-5.0); ALBUMIN/GLOBULIN RATIO 0.6 (1.1-1.5); ALKALINE PHOSPHATASE 66 IU/L (46-116); ANION GAP 10 (8-16); ASPARTATE AMINO TRANSFERASE 40 U/L (10-37); BILIRUBIN,TOTAL 0.5 MG/DL (0.1-1.0); BLOOD UREA NITROGEN 28 MG/DL (7-18); BUN/CREATININE RATIO 20.7 (5.4-32.0); CALCIUM 8.8 MG/DL (8.5-10.1); CHLORIDE 104 MMOL/L (99-107); CREATININE 1.35 MG/DL (0.60-1.10); GLUCOSE 155 MG/DL (70-104); SODIUM 142 MMOL/L (135-145); TOTAL CARBON DIOXIDE 28.2 MMOL/L (24-32); TOTAL PROTEIN 6.5 G/DL (6.4-8.2); eGFR 50 ML/MIN
[2020-12-19 10:05] LABS: PLATELET ESTIMATE NORMAL; TOTAL CELLS COUNTED 100
--- NOTE | 2020-12-19 17:03 | NUR ---
Nursing Progress Note: Legal hold: 5250 Client on involuntary status for DTS Report received from nurseTex RN with use of SBAR Why are they here: Client is a 85 yo man who attempted to overdose on his medications. Client told his daughter about this attempt and was taken to [facility]. Client states, "I'm old and I'm tired. I don't want to live to be 89. Three years ago I had a falling out with my son. I gave my daughter my house and my son is mad." "I'm lonely." Assessment What has happened this shift: Pt resting on his bed at the start of shift change. Pt took his medications as prescribed. He showered. Pt has redness both sides of his groin area. Pt states, "In the past my doctor said it was yeast and to use an antifungal." Pt talked about going home. He states he hopes his granddaughter and her can move in sharing that he hopes "it will be less lonely." S/I, H/I: Denies A/VH: Denies Sleep: Naps on and off during the day ADL's: Pt. remains on close observation r/t fall risk, uses FWW and bed alarm Group attendance: N/A Were meds taken: Yes Any med S/E None Mental Status Exam Appearance: Older man with RUE bandage, wearing green scrubs Eye contact: Good Behavior: Cooperative and fatigued Speech: Normal Mood: Depressed; appeared hopeful today he might go home with family Affect: Congruent with mood. Thought process: Linear Thought Content: talked about family moving into his home Cognition: A&O X4 Insight: Poor Judgment: Poor Interventions PRN's used: None Therapeutic interventions: Proved 1:1 assessment with therapeutic commination and active listening, medication administration/education/monitoring, provided clear and simple instructions, maintained fall precautions and close observation. Restraints/seclusion/emergency medication: N/A Justification of Continued Inpatient Treatment: Per Dr. Qureshi, pt. continues to require medication adjustments and a safe and supportive environment.
[2020-12-19] MEDS: levoFLOXACIN 500mg tablet PO SCH (17:18)
[2020-12-19 19:00] VITALS: BP 110/62
[2020-12-19] MEDS: mag hydrox/Alum hydrox/simeth 30ml oral suspension PO PRN (20:24)
--- NOTE | 2020-12-19 22:53 | NUR ---
Nursing Progress Note: Legal hold: 5250 Client on involuntary status for DTS Report received from nurse with use of SBAR: FINA Giles Why are they here: Client is a 85 yo man who attempted to overdose on his medications. Client told his daughter about this attempt and was taken to [facility]. Client states, "I'm old and I'm tired. I don't want to live to be 89. Three years ago I had a falling out with my son. I gave my daughter my house and my son is mad." "I'm lonely." Assessment What has happened this shift: Patient laying in bed at the beginning of shift. Pleasant and cooperative with care; compliant with medication. PRN Maalox provided this shift. Wound DSG CDI. Patient's R arm remains red in color but appears to be improving. WBC decreased to 11.0 and remains on ABx daily. He denies SI, HI, A/VH; does not appear to be responding to IS and no delusional thought content expressed. Patient has remained in bed at this time; observed sleeping and does not appear to be having difficulty. S/I, H/I: Denies A/VH: Denies Sleep: Refer to sleep assessment ADL's: Remains on close observation r/t fall risk, uses FWW and bed alarm Group attendance: NA Were meds taken: Yes Any med S/E: None observed or reported Mental Status Exam Appearance: Neat, appropriately dressed in green unit scrubs Eye contact: Good Behavior: Pleasant and cooperative, fatigued, restless Speech: Clear, audible, regular rate/rhythm Mood: Brightening Affect: Congruent with mood Thought process: Linear Thought Content: Meeting needs Cognition: A&O X4 Insight: Poor Judgment: Poor Interventions PRN's used: Maalox Therapeutic interventions: Maintained a safe and supportive environment, ensured contract for safety, provided clear and simple instructions, provided active listening and positive encouragement, monitored laceration on rt. elbow and obtained a culture and wound care orders, wound care completed, and maintained fall precautions and close observation. Restraints/seclusion/emergency medication: NA Justification of Continued Inpatient Treatment: Per Dr. Qureshi, pt. continues to require medication adjustments and a safe and supportive environment.
[2020-12-20] MEDS: aspirin 325mg tablet PO SCH (08:23)
[2020-12-20] MEDS: lisinopril 10 MG tablet PO SCH (08:23)
[2020-12-20] MEDS: atorvastatin 20mg tablet PO SCH (08:24)
[2020-12-20] MEDS: ESCITALOPRAM OXALATE 5 MG TABLET PO SCH (08:24)
[2020-12-20] MEDS: docusate sod 100mg capsule PO SCH ×2 (08:24→20:23)
[2020-12-20] MEDS: famotidine 20mg tablet PO SCH (08:24)
[2020-12-20] MEDS: levoFLOXACIN 500mg tablet PO SCH (08:24)
[2020-12-20] MEDS: lactobacillus rhamnosus 10,000 MMU CELLS/CAPSULE PO SCH ×2 (08:24→20:23)
[2020-12-20] MEDS: tamsulosin 0.4mg capsule PO SCH (08:24)
[2020-12-20 08:27] VITALS: BP 127/83
--- NOTE | 2020-12-20 17:55 | NUR ---
Nursing Progress Note: Legal hold: 5250 Client on involuntary status for DTS Report received from nurseTex RN with use of SBAR Why are they here: Client is a 85 yo man who attempted to overdose on his medications. Client told his daughter about this attempt and was taken to [facility]. Client states, "I'm old and I'm tired. I don't want to live to be 89. Three years ago I had a falling out with my son. I gave my daughter my house and my son is mad." "I'm lonely." Assessment What has happened this shift: Pt asleep on his bed at the start of shift change. He is up for all meals. Today he talked and laughed on the phone with cousins in [place] and a family member. Pt now on Levaquin for cellulites. Drsg removed. Wound cleansed and redressed. Order put in for Nystatin Powder for his groin. Pt is looking forward to going home "soon." S/I, H/I: Denies A/VH: Denies Sleep: Naps on and off during the day ADL's: Pt. remains on close observation r/t fall risk, uses FWW and bed alarm Group attendance: N/A Were Meds taken: Yes Any med S/E None Mental Status Exam Appearance: Older man with RUE bandage, wearing green scrubs Eye contact: Good Behavior: Cooperative and fatigued Speech: Normal Mood: Depressed; appeared hopeful today he might go home with family Affect: Congruent with mood. Thought process: Linear Thought Content: talked about family moving into his home Cognition: A&O X4 Insight: Poor Judgment: Poor Interventions PRN's used: None Therapeutic interventions: Provided 1:1 assessment with therapeutic commination and active listening, medication administration/education/monitoring, provided clear and simple instructions, maintained fall precautions and close observation. Restraints/seclusion/emergency medication: N/A Justification of Continued Inpatient Treatment: Per Dr. Qureshi, pt. continues to require medication adjustments and a safe and supportive environment.
[2020-12-20 20:13] VITALS: BP 100/57
--- NOTE | 2020-12-21 00:38 | NUR ---
Nursing Progress Note: Legal hold: 5250 Client on involuntary status for DTS Report received from nurse, Kp RN with use of SBAR Why are they here: Client is a 85 yo man who attempted to overdose on his medications. Client told his daughter about this attempt and was taken to [facility]. Client states, "I'm old and I'm tired. I don't want to live to be 89. Three years ago I had a falling out with my son. I gave my daughter my house and my son is mad." "I'm lonely." Assessment What has happened this shift: Pt asleep on his bed at the start of shift change. He did not get up for snack. Pt was med compliant and cooperative.Pt states he is looking forward to going home "soon." S/I, H/I: Denies A/VH: Denies Sleep: See sleep assessment ADL's: Pt. remains on close observation r/t fall risk, uses FWW and bed alarm Group attendance: N/A Were Meds taken: Yes Any med S/E None Mental Status Exam Appearance: Older man with RUE bandage, wearing green scrubs Eye contact: Good Behavior: Cooperative and fatigued Speech: Normal Mood: Depressed; appeared hopeful today he might go home with family Affect: Congruent with mood. Thought process: Linear Thought Content: talked about family moving into his home Cognition: A&O X4 Insight: Poor Judgment: Poor Interventions PRN's used: None Therapeutic interventions: Provided 1:1 assessment with therapeutic commination and active listening, medication administration/education/monitoring, provided clear and simple instructions, maintained fall precautions and close observation. Restraints/seclusion/emergency medication: N/A Justification of Continued Inpatient Treatment: Per Dr. Qureshi, pt. continues to require medication adjustments and a safe and supportive environment.
[2020-12-21 08:00] VITALS: BP 111/72
[2020-12-21] MEDS: nystatin 15 GM powder TP SCH (08:00)
[2020-12-21] MEDS: aspirin 325mg tablet PO SCH (08:06)
[2020-12-21] MEDS: ESCITALOPRAM OXALATE 5 MG TABLET PO SCH (08:06)
[2020-12-21] MEDS: famotidine 20mg tablet PO SCH (08:06)
[2020-12-21] MEDS: lactobacillus rhamnosus 10,000 MMU CELLS/CAPSULE PO SCH ×2 (08:07→20:17)
[2020-12-21] MEDS: levoFLOXACIN 500mg tablet PO SCH (08:07)
[2020-12-21] MEDS: lisinopril 10 MG tablet PO SCH (08:07)
[2020-12-21] MEDS: docusate sod 100mg capsule PO SCH ×2 (08:07→20:17)
[2020-12-21] MEDS: atorvastatin 20mg tablet PO SCH (08:07)
[2020-12-21] MEDS: tamsulosin 0.4mg capsule PO SCH (08:08)
[2020-12-21 08:25] LABS: BASOPHILS # (AUTO) 0.1 X10'3 (0-0.2); BASOPHILS % (AUTO) 0.5 % (0-1); EOSINOPHILS # (AUTO) 0.2 X10'3 (0-0.9); EOSINOPHILS % (AUTO) 1.5 % (0-6); HEMATOCRIT 45.4 % (42.0-52.0); HEMOGLOBIN 15.5 g/dl (14.0-17.9); LYMPHOCYTES # (AUTO) 2.2 X10'3 (1.1-4.8); LYMPHOCYTES % (AUTO) 19.5 % (21-51); MEAN CORPUSCULAR HEMOGLOBIN 30.3 PG (27.0-31.0); MEAN CORPUSCULAR HGB CONC 34.2 g/dL (33.0-36.5); MEAN CORPUSCULAR VOLUME 88.7 FL (78-98); MEAN PLATELET VOLUME 8.5 FL (7.4-10.4); MONOCYTES # (AUTO) 1.1 X10'3 (0-0.9); MONOCYTES % (AUTO) 9.3 % (2-12); NEUTROPHILS # (AUTO) 7.8 X10'3 (1.8-7.7); NEUTROPHILS % (AUTO) 69.2 % (42-75); PLATELET COUNT 304 X10'3 (140-440); RED BLOOD COUNT 5.12 X10'6 (4.70-6.10); WHITE BLOOD COUNT 11.3 X10'3 (4.5-11.0)
[2020-12-21 08:56] LABS: ALANINE AMINOTRANSFERASE 62 U/L (12-78); ALBUMIN 2.7 G/DL (3.4-5.0); ALBUMIN/GLOBULIN RATIO 0.6 (1.1-1.5); ALKALINE PHOSPHATASE 73 IU/L (46-116); ANION GAP 9 (8-16); ASPARTATE AMINO TRANSFERASE 32 U/L (10-37); BILIRUBIN,TOTAL 0.6 MG/DL (0.1-1.0); BLOOD UREA NITROGEN 27 MG/DL (7-18); BUN/CREATININE RATIO 21.6 (5.4-32.0); CALCIUM 8.8 MG/DL (8.5-10.1); CHLORIDE 103 MMOL/L (99-107); CREATININE 1.25 MG/DL (0.60-1.10); GLUCOSE 103 MG/DL (70-104); POTASSIUM 4.5 MMOL/L (3.5-5.1); SODIUM 139 MMOL/L (135-145); TOTAL CARBON DIOXIDE 26.7 MMOL/L (24-32); TOTAL PROTEIN 6.9 G/DL (6.4-8.2); eGFR 55 ML/MIN
--- NOTE | 2020-12-21 09:14 | NUR ---
Pt. attended group today. We talked about how we all look at the world differently due to our core beliefs. These core beliefs then inform thoughts and behaviors. Each pt. identified one negative core belief and then wrote out three truths that contradict their negative beliefs to work on thinking differently. Pt. engaged really well in the group today. He shared appropriately and shared at a very personal level about how he had been feeling suicidal because of his belief that he is just old and useless. He shared that he was always a very active person and in the last few years he has not been able to do the active things he so enjoyed as a younger man. He talked about feeling a loss of purpose. Some of his peers in the group took this opportunity to share how they felt he was a man of wisdom and one peer reported that he was missing his grandparents and that he has so much to offer to his own grandchildren. Pt. was able to take all of this and his new positive belief is that he is still growing and learning new things. He was alert and oriented X 4. His thought content and thought process was WNL. His demeanor was calm. compliant and pleasant to work with. Cony Palm LCSW
[2020-12-21 10:15] LABS: TOTAL CELLS COUNTED 100
[2020-12-21 10:16] LABS: PLATELET ESTIMATE NORMAL
--- NOTE | 2020-12-21 12:54 | NUR ---
Reassessment: Pt currently on Regular diet eating mostly 100% of meals meeting needs. LBM 12/20 receiving routine colace. No nutrition intervention implemented at this time, will continue to monitor. Recs: 1. Continue Regular diet as tolerated 2. Bowel care per rx 3. Weekly wts Addendum: 12/21/20 at 1255 by Ryan Benson Seasonal Customer Service Associate RD Amended: Links added. Addendum: 12/21/20 at [address] I have reviewed and agree w/ note by Seasonal Customer Service AssociateJamari Morton RD
--- NOTE | 2020-12-21 17:12 | NUR ---
Nursing Progress Note: Legal hold: 5250 Client on involuntary status for DTS Report received from nurse, FINA Russo with use of SBAR Why are they here: Client is a 85 yo man who attempted to overdose on his medications. Client told his daughter about this attempt and was taken to [facility]. Client states, "I'm old and I'm tired. I don't want to live to be 89. Three years ago I had a falling out with my son. I gave my daughter my house and my son is mad." "I'm lonely." Assessment What has happened this shift: Pt asleep on his bed at the start of shift change. He is up for all meals. Wound cleansed and redressed, no S/s of infection, patient states the redness has been going down. Today patient was happy to have visitors and a new room mate. This music writer asked patient when he thought he would be ready to go home, patient states "I think soon". Per earlier eval patient was living home alone. "I just don't want to live to be 89." S/I, H/I: Denies A/VH: Denies Sleep: Naps on and off during the day ADL's: Pt. remains on close observation r/t fall risk, uses FWW and bed alarm Group attendance: N/A Were Meds taken: Yes Any med S/E None Mental Status Exam Appearance: Older man with RUE bandage, wearing green scrubs Eye contact: Good Behavior: Cooperative and fatigued Speech: Normal Mood: Depressed; appeared hopeful today he might go home with family "It would be nice to not be alone" Affect: Congruent with mood. Thought process: Linear Thought Content: talked about family moving into his home Cognition: A&O X4 Insight: Poor Judgment: Poor Interventions PRN's used: None Therapeutic interventions: Provided 1:1 assessment with therapeutic commination and active listening, medication administration/education/monitoring, provided clear and simple instructions, maintained fall precautions and close observation. Restraints/seclusion/emergency medication: N/A Justification of Continued Inpatient Treatment: Per Dr. Qureshi, pt. continues to require medication adjustments and a safe and supportive environment.
[2020-12-21] MEDS: mag hydrox/Alum hydrox/simeth 30ml oral suspension PO PRN (20:17)
[2020-12-21 20:36] VITALS: BP 111/58
--- NOTE | 2020-12-22 00:57 | NUR ---
Nursing Progress Note: Legal hold: 5250 Client on involuntary status for DTS Report received from nurse, FINA Taveras with use of SBAR Why are they here: Client is a 85 yo man who attempted to overdose on his medications. Client told his daughter about this attempt and was taken to [facility]. Client states, "I'm old and I'm tired. I don't want to live to be 89. Three years ago I had a falling out with my son. I gave my daughter my house and my son is mad." "I'm lonely." Assessment What has happened this shift: Pt awake on his bed at the start of shift change. Pt c/o heart burn and requested Maalox that was effective. Pt was med compliant stated that he thinks he might be discharged in a day or two. S/I, H/I: Denies A/VH: Denies Sleep: See sleep assessment ADL's: Pt. remains on close observation r/t fall risk, uses FWW and bed alarm Group attendance: N/A Were Meds taken: Yes Any med S/E None Mental Status Exam Appearance: Older man with RUE bandage, wearing green scrubs Eye contact: Good Behavior: Cooperative and fatigued Speech: Normal Mood: Depressed; appeared hopeful today he might go home with family "It would be nice to not be alone" Affect: Congruent with mood. Thought process: Linear Thought Content: talked about family moving into his home Cognition: A&O X4 Insight: Poor Judgment: Poor Interventions PRN's used: None Therapeutic interventions: Provided 1:1 assessment with therapeutic commination and active listening, medication administration/education/monitoring, provided clear and simple instructions, maintained fall precautions and close observation. Restraints/seclusion/emergency medication: N/A Justification of Continued Inpatient Treatment: Per Dr. Qursehi, pt. continues to require medication adjustments and a safe and supportive environment.
[2020-12-22 07:59] VITALS: BP 116/59
[2020-12-22] MEDS: levoFLOXACIN 500mg tablet PO SCH (08:04)
[2020-12-22] MEDS: ESCITALOPRAM OXALATE 5 MG TABLET PO SCH (08:04)
[2020-12-22] MEDS: atorvastatin 20mg tablet PO SCH (08:04)
[2020-12-22] MEDS: lisinopril 10 MG tablet PO SCH (08:04)
[2020-12-22] MEDS: docusate sod 100mg capsule PO SCH ×2 (08:04→20:15)
[2020-12-22] MEDS: aspirin 325mg tablet PO SCH (08:04)
[2020-12-22] MEDS: tamsulosin 0.4mg capsule PO SCH (08:04)
[2020-12-22] MEDS: lactobacillus rhamnosus 10,000 MMU CELLS/CAPSULE PO SCH ×2 (08:04→20:15)
[2020-12-22] MEDS: famotidine 20mg tablet PO SCH (08:05)
[2020-12-22] MEDS: nystatin 15 GM powder TP SCH (08:44)
--- NOTE | 2020-12-22 13:22 | NUR ---
Pt attended group today. We talked about reframing thoughts utilizing a picture where they had to write down what thoughts there were struggling with today. Patients then constructed Vision Pages/Collages with inspiring words and pictures to work toward rewiring these thoughts into positive affirmations. Pt. engaged well in the group. He was alert and oriented X 4. His thought process and thought content was WNL. He reported that he enjoys doing collages so it was very easy for him to complete a page. He shared his page with the group explaining how the pictures inspire him. At the center of the beautiful scenery type pictures he placed the word HOPE. He feels that this is what he feels when he is in nature. His mood was bright with a full range of affect. His demeanor was calm. compliant and pleasant to work with. Cony Palm LCSW
--- NOTE | 2020-12-22 15:20 | NUR ---
DCP Clinician had t/c with pt's dtr and engaged her in dcp activities. Per discussion, a family's friend will stay w/pt when he returns home until he can move in with the dtr. Dtr support home healthcare services to facilitate pt's recovery at home. Dtr requests for a wheelchair so pt can be taken out of the home on outings w/family. Dtr will pick pt up after 1:30PM tomorrow. Clinician consulted w/attending physician re home healthcare services, per consultation a referral to [facility] was provided requesting for support from [employer] CLERK, wound care, PT and N, referral faxed to [facility]. An order for a wheelchair was completed and sent to attending physician for signature, clinician will fax to [facility] tomorrow and have it deliver to pt's home/hospital. Cassidy Vasquez LCSW Addendum: 12/22/20 at 1526 by Cassidy Vasquez SS Amended: Links added.
--- NOTE | 2020-12-22 17:00 | NUR ---
Nursing Progress Note: Malick Jimenez Legal hold: 5250 Client on involuntary status for DTS Report received from charge nurse, FINA Porter with use of SBAR Why are they here: Client is a 85 yo man who attempted to overdose on his medications. Client told his daughter about this attempt and was taken to [facility]. Client states, "I'm old and I'm tired. I don't want to live to be 89. Three years ago I had a falling out with my son. I gave my daughter my house and my son is mad." "I'm lonely." Assessment What has happened this shift: Patient observed sleeping in bed at change of shift. He was awoken to join in the community room with peers for breakfast. Patient presents as calm, polite, and cooperative with care. He was noted socializing with other peers during breakfast time. Patient retreated back to his room shortly after. 1:1 assessment completed, lungs CTA. He is compliant with all medications. Wound to right lateral forearm cleaned and dressed per order. Patient denies SI/HI, AH or VH. Does not appear to be responding to internal stimuli. Patient remains on close observation r/t fall risk, uses FWW and bed alarm. Patient appears hopeful for discharge, endorsing to this va underwriter that he is feeling better today. He presents with linear thought process. Patient participated in group therapy and art therapy today, noted interacting and engaging appropriately. He is pleasant, composed, and cooperative with care. He was social with his roommate throughout the day, appearing to have formed a lopez with him. Patient was observed laughing and joking with staff and other peers on the unit. He participated in the community room for all snack and meal times today. S/I, H/I: Denies A/VH: Denies Sleep: Patient slept 6.25 hours last night per NOC shift. Napped intermittently throughout the day. ADL's: Pt. remains on close observation r/t fall risk, uses FWW and bed alarm Group attendance: Yes Were Meds taken: Yes Any med S/E: None observed or reported Mental Status Exam Appearance: Older appearing man with RUE bandage, wearing green unit scrubs Eye contact: Good Behavior: Cooperative, social, fatigued Speech: Clear, WNL Mood: Appears hopeful for discharge. Feeling better today. Affect: Congruent with mood. Full range. Thought process: Linear Thought Content: Discharge plans. Meeting needs. Cognition: A&O X4 Insight: Poor Judgment: Poor Interventions PRN's used: None Therapeutic interventions: Provided 1:1 assessment with therapeutic commination and active listening, medication administration/education/monitoring, provided clear and simple instructions, Q15 minute safety checks, wound care per order, and maintained fall precautions and close observation. Restraints/seclusion/emergency medication: N/A Justification of Continued Inpatient Treatment: Patient continues to require medication adjustment and monitoring in a safe and therapeutic milieu. Per GINI Euceda, Patient does not have a good safety plan for discharge at this time. We are still titrating medications to an effective dose while maintaining a therapeutic environment to prevent decompensation and readmission.
--- NOTE | 2020-12-22 17:36 | NUR ---
Group Art Tx, Continued: Patient attended group art therapy for the first time. He was able to follow all directives and complewted his drawing and journaling. He wrote: I am standing at the doorway to hope, "I see I have hope, I feel free. I wish for growth, I want peace, I need peace of mind. I will look for new growth/Goals I believe that I can do this... I feel I will." Patient was attentive, observant and interactive w/ his peers. *Please refer to the [facility] Case Notes for entire overview. Johanna Foote MA, HAT MARKER #[id number] [facility] Art Therapist Addendum: 12/22/20 at 1737 by Johanna Foote SS Amended: Links added.
[2020-12-22] MEDS: mag hydrox/Alum hydrox/simeth 30ml oral suspension PO PRN (20:15)
[2020-12-22 20:37] VITALS: BP 95/55
--- NOTE | 2020-12-23 00:22 | NUR ---
Nursing Progress Note: Legal hold: 5250 Client on involuntary status for DTS Report received from nurse, FINA Taveras with use of SBAR Why are they here: Client is a 85 yo man who attempted to overdose on his medications. Client told his daughter about this attempt and was taken to [facility]. Client states, "I'm old and I'm tired. I don't want to live to be 89. Three years ago I had a falling out with my son. I gave my daughter my house and my son is mad." "I'm lonely." Assessment What has happened this shift: Pt awake lying in bed talking on the phone at the start of shift change. Pt requested Maalox that was effective. Pt was med compliant stated that he thinks he might be discharged in a day or two. S/I, H/I: Denies A/VH: Denies Sleep: See sleep assessment ADL's: Pt. remains on close observation r/t fall risk, uses FWW and bed alarm Group attendance: N/A Were Meds taken: Yes Any med S/E None Mental Status Exam Appearance: Older man with RUE bandage, wearing green scrubs Eye contact: Good Behavior: Cooperative and fatigued Speech: Normal Mood: Depressed; appeared hopeful today he might go home with family "It would be nice to not be alone" Affect: Congruent with mood. Thought process: Linear Thought Content: talked about family moving into his home Cognition: A&O X4 Insight: Poor Judgment: Poor Interventions PRN's used: None Therapeutic interventions: Provided 1:1 assessment with therapeutic commination and active listening, medication administration/education/monitoring, provided clear and simple instructions, maintained fall precautions and close observation. Restraints/seclusion/emergency medication: N/A Justification of Continued Inpatient Treatment: Per Dr. Qureshi, pt. continues to require medication adjustments and a safe and supportive environment.
[2020-12-23 08:00] VITALS: BP 124/82
--- NOTE | 2020-12-23 08:11 | NUR ---
Discharge Presenting Issues: Pt to d/c this afternoon, he will rt home, dtr to transport. Family has made arrangements for a family's friend to stay w/pt until January when pt will move in w/dtr. Pt's to follow up with his PMD & outpt Mental Health team at the [facility], post-hospital appointments will be via phone. Referrals for Home Health services (PT, Wound Care, BHN/HAND II BLOCKER) sent to [facility] in [facility], they will meet pt on 12/24 to provide wound care and intake pt for home health services. Pt's family were educated on ways to minimize the impact of depression on pt's quality of life, family are planning to be more present in pt's daily life. Interventions: An order for a wheelchair faxed to [facility] to facilitate pt recovery from this depressive episode as the wheelchair will allow pt to re-engage in community life as pt had been active prior to his health decline. Plan: Pt to discharge home this afternoon and follow-up with [place] providers and [facility]. Cassidy Vasquez LCSW Addendum: 12/23/20 at 0849 by Cassidy Vasquez SS Amended: Links added.
[2020-12-23] MEDS: ESCITALOPRAM OXALATE 5 MG TABLET PO SCH (08:17)
[2020-12-23] MEDS: aspirin 325mg tablet PO SCH (08:17)
[2020-12-23] MEDS: lactobacillus rhamnosus 10,000 MMU CELLS/CAPSULE PO SCH (08:17)
[2020-12-23] MEDS: tamsulosin 0.4mg capsule PO SCH (08:17)
[2020-12-23] MEDS: atorvastatin 20mg tablet PO SCH (08:17)
[2020-12-23] MEDS: levoFLOXACIN 500mg tablet PO SCH (08:17)
[2020-12-23 08:18] VITALS: BP_SYST 124
[2020-12-23] MEDS: famotidine 20mg tablet PO SCH (08:18)
[2020-12-23] MEDS: lisinopril 10 MG tablet PO SCH (08:18)
[2020-12-23] MEDS: docusate sod 100mg capsule PO SCH (08:18)
[2020-12-23] MEDS ORDERED: ATOR40TA71 PO (08:20)
[2020-12-23] MEDS ORDERED: ASPI-1 PO (08:20)
[2020-12-23] MEDS ORDERED: FAMO20TA8 PO (08:20)
[2020-12-23] MEDS ORDERED: tamsulosin capsule PO (08:20)
[2020-12-23] MEDS ORDERED: DOCU100C40 PO (08:20)
[2020-12-23] MEDS ORDERED: LACT1CAP26 PO (08:20)
[2020-12-23] MEDS ORDERED: LISI10TA27 PO (08:20)
[2020-12-23] MEDS ORDERED: LEVO500T90 PO (08:20)
[2020-12-23] MEDS ORDERED: ESCI-8 PO (08:20)
[2020-12-23] MEDS: nystatin 15 GM powder TP SCH (08:34)
[2020-12-23] MEDS ORDERED: ESCI5TAB PO (13:12)
--- NOTE | 2020-12-23 14:10 | NUR ---
Patient discharged from [facility] and escorted from unit at approximately 1350. He was picked up by a family member in front of the main entrance to hospital. Discharge instructions received and verbalized understanding. Patients belongings inventoried and returned to him. Patient is calm, cooperative, A&O x4, friendly, social, no apparent distress or complaints. Patient verbalized understanding of discharge plan, medications, and follow up appointment. He left the hospital without incident.
== END 2020-12-23 13:50 | disposition home or self-care (01) | DRG 885 ==
LOC: ADULT MH 18:00
PROVIDERS: ADMIT Psychiatry & Neurology Neurology with Special Qualifications in Child Neurology; ATTEND Psychiatry & Neurology Neurology with Special Qualifications in Child Neurology
DX: F32.2 Major depressive disorder, single episode, severe without psychotic features (principal); J96.10 Chronic respiratory failure, unspecified whether with hypoxia or hypercapnia; B95.4 Other streptococcus as the cause of diseases classified elsewhere; L03.113 Cellulitis of right upper limb; K30 Functional dyspepsia; M25.521 Pain in right elbow; T14.91XA Suicide attempt, initial encounter; T46.5X2A Poisoning by other antihypertensive drugs, intentional self-harm, initial encounter; R11.0 Nausea; F41.9 Anxiety disorder, unspecified; Z60.2 Problems related to living alone; J84.10 Pulmonary fibrosis, unspecified; I10 Essential (primary) hypertension; N40.1 Benign prostatic hyperplasia with lower urinary tract symptoms; E78.5 Hyperlipidemia, unspecified; K21.9 Gastro-esophageal reflux disease without esophagitis; R35.0 Frequency of micturition; B37.9 Candidiasis, unspecified; K59.00 Constipation, unspecified; E66.9 Obesity, unspecified; Z85.828 Personal history of other malignant neoplasm of skin; Z90.49 Acquired absence of other specified parts of digestive tract; Z23 Encounter for immunization; Z79.899 Other long term (current) drug therapy; Z79.82 Long term (current) use of aspirin; Z99.81 Dependence on supplemental oxygen; Y93.89 Activity, other specified; Y99.8 Other external cause status; Z85.46 Personal history of malignant neoplasm of prostate; W01.0XXA Fall on same level from slipping, tripping and stumbling without subsequent striking against object, initial encounter; Y92.230 Patient room in hospital as the place of occurrence of the external cause; S50.311A Abrasion of right elbow, initial encounter; Z68.26 Body mass index [BMI] 26.0-26.9, adult
CPT/HCPCS: 36415; 73080; 80048; 80053; 80061; 81001; 83036; 84145; 84443; 85007; 85025; 87070; 87075; 87077; 87081; 87186